=== PATIENT | male | born 1990 | race Caucasian/White ===

== ENCOUNTER 2017-04-25 01:39 | Emergency (ER) | payer OTHER, BC ==
[~2017-04-25 01:39] MED LIST: SULF-198 PO
[2017-04-25 01:43] VITALS: BP 152/105
[2017-04-25] MEDS ORDERED: CETI10CA8 PO (01:46)
--- NOTE | 2017-04-25 01:58 | ER Report ---
History and Physical Time Seen By MD: 01:53 Hx. of Stated Complaint: PT WAS SEARCHING POSSIBLE IV DRUG USER AND WAS POKED BY SOMETHING ON PERSON. 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 Patient has 2 puncture wounds noted on the distal end of his right long finger. Patient reports that the suspect was a IV drug abuser. He is concerned about exposure to hepatitis C and HIV. He was wearing nitrile gloves at the time. Patient reports he's had hepatitis B vaccine series. Allergies: Coded Allergies: No Known Drug Allergies (Unverified , 04/25/17) Home Meds Active Scripts Emtricitabine (EMTRIVA) 200 Mg Capsule, 200 MG PO DAILY for prevention of HIV infection, #21 CAPSULE Prov:BLAIR JOSHUA DO 04/25/17 Emtricitabine (EMTRIVA) 200 Mg Capsule, 200 MG PO DAILY for prevention of HIV infection, #21 CAPSULE Prov:BLAIR JOSHUA DO 04/25/17 Tenofovir Disoproxil Fumarate (VIREAD) 300 Mg Tablet, 300 MG PO DAILY for prevention of HIV infection, #21 Prov:BLAIR JOSHUA DO 04/25/17 Tenofovir Disoproxil Fumarate (Tenofovir Disoproxil Fumarate) 300 Mg Tablet, 1 EACH PO DAILY for prevention of HIV infection, #7 Prov:BLAIR JOSHUA DO 04/25/17 Raltegravir Potassium (ISENTRESS) 400 Mg Tablet, 400 MG PO DAILY for prevention of HIV infection, #21 Prov:BLAIR JOSHUA DO 04/25/17 Raltegravir Potassium (ISENTRESS) 400 Mg Tablet, 400 MG PO DAILY for prevention of HIV infection, #7 Prov:BLAIR JOSHUA DO 04/25/17 Sulfamethoxazole/Trimet 800-160 Mg Tab (BACTRIM DS TABLET) 1 Each Tablet, 1 TAB PO BID for 30 Days, #60 TAB 2 Refills Prov:SHARON SELLERS NPC 01/25/17 Reported Medications Cetirizine Hcl (ZYRTEC) 10 Mg Capsule, 10 MG PO QDAY, CAPSULE 04/25/17 Reviewed Nurses Notes: Yes Old Medical Records Reviewed: Yes Hx Substance Use Disorder: No Hx Alcohol Use: No Constitutional Vital Sign - Last 24 Hours 04/25/17 01:43 Temp 98.3 Pulse 65 Resp 16 B/P (MAP) 152/105 Pulse Ox 98 O2 Delivery Room Air Physical Exam General appearance: Alert no distress. Vital signs stable, afebrile Respiratory: Chest is non tender, lungs are clear to auscultation. Cardiac: Regular rate and rhythm Extremities: Examination of the right hand reveals a neurovascularly intact digits. On the very tip of the right long finger. There are 2 tiny puncture wound appearing morrissey just adjacent to the nail on the very tip of the finger. DIFFERENTIAL DIAGNOSIS: After history and physical exam differential diagnosis was considered for needle stick injury, possible exposure to HIV, hepatitis C Medical Decision Making Data Points Laboratory Hematology Test 04/25/17 01:47 HIV (1&2) Antibody Negative (NEGATIVE) Chemistry Test 04/25/17 01:47 HIV (1&2) Antibody Negative (NEGATIVE) ED Course/Re-evaluation ED Course Patient was admitted to an examination room. H&P was done. The differential diagnoses was considered. On clinical examination. Patient has potential needle stick morrissey on his right long finger. He is advised about postexposure prophylaxis. Nicotine his best interest to start prophylaxis to prevent transmission of HIV. He's advised to have the source patient checked for HIV and hepatitis B&C. prescriptions were written for 3 antiviral drugs advised for the current postexposure prophylaxis. Patient was written a 7 day supply. Hopefully he can discontinue it. He was given another prescription for an additional 3 weeks. Should he need it. Patient advised to follow-up with his age are for referral to workers comp provider for blood evaluation at 6 weeks and 6 months. Decision to Disposition Date: Apr 25, 2017 Decision to Disposition Time: 02:07 Depart Departure Latest Vital Signs Vital Signs Date Time Temp Pulse Resp B/P (MAP) Pulse Ox O2 Delivery O2 Flow Rate FiO2 04/25/17 01:43 98.3 65 16 152/105 98 Room Air Impression: Primary Impression: Needle stick injury of finger of right hand Additional Impression: Needlestick injury due to hypodermic needle Condition: Improved Disposition: HOME OR SELF-CARE New Scripts Emtricitabine (EMTRIVA) 200 Mg Capsule 200 MG PO DAILY for prevention of HIV infection, #21 CAPSULE Prov: BLAIR JOSHUA DO 04/25/17 Emtricitabine (EMTRIVA) 200 Mg Capsule 200 MG PO DAILY for prevention of HIV infection, #21 CAPSULE Prov: BLAIR JOSHUA DO 04/25/17 Tenofovir Disoproxil Fumarate (VIREAD) 300 Mg Tablet 300 MG PO DAILY for prevention of HIV infection, #21 Prov: BLAIR JOSHUA DO 04/25/17 Tenofovir Disoproxil Fumarate (Tenofovir Disoproxil Fumarate) 300 Mg Tablet 1 EACH PO DAILY for prevention of HIV infection, #7 Prov: BLAIR JOSHUA DO 04/25/17 Raltegravir Potassium (ISENTRESS) 400 Mg Tablet 400 MG PO DAILY for prevention of HIV infection, #21 Prov: BLAIR JOSHUA DO 04/25/17 Raltegravir Potassium (ISENTRESS) 400 Mg Tablet 400 MG PO DAILY for prevention of HIV infection, #7 Prov: BLAIR JOSHUA DO 04/25/17 Patient Instructions: Needle Stick Injuries (ED) Additional Instructions: Follow-up with your HR department for follow-up. A blood draw in 6 weeks and 6 months to check for hepatitis C and HIV conversion We will prescribe postexposure prophylaxis to prevent conversion to HIV positive. If you are exposed. It is a 3 drug treatment plan. Those will be prescribed Problem Qualifiers Primary Impression: Needle stick injury of finger of right hand Encounter type: initial encounter Qualified Codes: S61.239A - Puncture wound without foreign body of unspecified finger without damage to nail, initial encounter; W27.3XXA - Contact with needle (sewing), initial encounter BLAIR JOSHUA DO Apr 25, 2017 01:58
[2017-04-25] MEDS ORDERED: TENO300T PO (02:14)
[2017-04-25] MEDS ORDERED: TEN300PT PO (02:14)
[2017-04-25] MEDS ORDERED: RALT400T6 PO (02:14)
[2017-04-25] MEDS ORDERED: [UNRECOGNIZED DRUG - CODE] PO (02:14)
== END 2017-04-25 02:37 | disposition home or self-care (01) ==
LOC: ER 02:13
DX: S61.239A Puncture wound without foreign body of unspecified finger without damage to nail, initial encounter (principal); W46.1XXA Contact with contaminated hypodermic needle, initial encounter
CPT/HCPCS: 36415; 86703; 86803; 87340; 99282

== ENCOUNTER 2017-06-29 08:58 | Outpatient (RCR) | payer BC, OTHER ==
[2017-06-01 08:51] VITALS: BP 138/70
--- NOTE | 2017-06-01 16:37 | ONCOLOGY CONSULTATION ---
EVENT DATE: June 01, 2017 REFERRING PHYSICIAN Olga Kirby [facility] REASON FOR CONSULTATION Evaluation and management of iron overload. HISTORY OF PRESENT ILLNESS Patient is a 26-year-old male who is followed by his primary care provider, Olga Kirby, and patient was found to have elevated iron studies recently. He had a chem panel which was normal. His iron studies showed ferritin of 414, serum iron was 154, TIBC was 280 and iron saturation was 55%. Patient does not know family history because he was adopted and denies any heavy alcohol intake, and denies any history of hepatitis in the past. PAST MEDICAL HISTORY Insignificant. PAST SURGICAL HISTORY Insignificant. SOCIAL HISTORY Patient is single with no children. 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 He drinks about one to two drinks per week. Denies any abuse of alcohol or illicit drugs. FAMILY HISTORY He was adopted and he does not know about his family history. CURRENT MEDICATIONS 1. Bactrim for acne. 2. Fish oil. 3. Multivitamin without iron. 4. Retinoid cream. 5. Clindamycin cream for acne. ALLERGIES No known drug allergies. REVIEW OF SYSTEMS CONSTITUTIONAL: No appetite or weight change. No fever, chills or sweating. No recent infection. HEENT: Ears: No tinnitus or hearing problem. Nose: No epistaxis. He has runny nose sometimes. Throat: No sore throat or mouth ulcers. Eyes: No diplopia or visual changes. RESPIRATORY: No shortness of breath. No cough, expectoration or hemoptysis. CARDIOVASCULAR: No chest pain, orthopnea, or paroxysmal nocturnal dyspnea (PND) . No edema. No palpitations. GASTROINTESTINAL: No nausea or vomiting. No diarrhea or constipation. No change in bowel movements. No heartburn or swallowing difficulties. No abdominal pain. No jaundice. No hematemesis, melena or rectal bleeding. GENITOURINARY: No hematuria or dysuria. MUSCULOSKELETAL: No pain in the muscles, joints or bones. NEUROLOGICAL: No tingling or numbness in the hands or feet. No headaches or convulsions. HEMATOLOGIC/LYMPHATIC: No bleeding or easy bruising. No weakness or fatigue. No enlarged lymph nodes. SKIN: No skin rash or lumps. PSYCHIATRIC: No anxiety or depression. PHYSICAL EXAMINATION GENERAL: Looks stable. Well-developed, well-nourished, and in no acute distress. VITAL SIGNS: Blood pressure 138/70, pulse 65 per minute, respirations 16 per minute, temperature 97.3, pulse ox 98% on room air. HEENT: Head: Atraumatic. No sinus tenderness to palpation. Eyes: No icterus or conjunctivitis. Mouth and Throat: No oral thrush or mucositis. NECK: Supple. No cervical or supraclavicular lymphadenopathy. LUNGS: Clear to auscultation and percussion bilaterally. HEART: Regular rate and rhythm. No gallops, murmurs, clicks or rubs. ABDOMEN: Soft and lax. No tenderness. No hepatosplenomegaly. No masses. EXTREMITIES: No cyanosis, clubbing or edema. LYMPHATICS: No peripheral lymphadenopathy. NEUROLOGICAL: Conscious, alert and oriented times three. No focal motor or sensory deficits. PSYCHIATRIC: Mood and affect appear normal. SKIN: No skin rash, bruise or purpuric eruption. ASSESSMENT 1. Iron overload with serum iron 414 and iron saturation 55%. Could be due to hemochromatosis. Patient does not know his family history because he was adopted. I am planning to run the genetic testing for hemochromatosis and I will see the patient in a week for further evaluation. If the patient will prove to have hemochromatosis then we will start induction phlebotomy until we reach the target of ferritin less than 50 and/or iron saturation less than 60%. Once we reach the target then we will start after that maintenance phlebotomy. I spent a long time with the patient and his fiancee explaining the disease and the complications of that disease if not treated. Patient is aware that the disease is 100% preventable if we can keep his target iron studies within ferritin less than 50% and/or iron saturation less than 60%. PLAN 1. Genetic testing for hemochromatosis. 2. Patient to return in one week for further evaluation and management. 3. Patient is to contact us for any new concerns or complaints MTDD
[2017-06-12 08:10] VITALS: BP 126/72
[2017-06-12 08:26] LABS: PLATELET COUNT, AUTOMATED 166 K/uL (150-450)
[2017-06-12 09:30] VITALS: BP 127/82
[2017-06-26 08:27] VITALS: BP 120/57
[2017-06-26 08:38] LABS: PLATELET COUNT, AUTOMATED 196 K/uL (150-450)
[~2017-06-29 08:58] MED LIST changes: +CETI10CA8 PO; +MULT-1335 PO; +OMEG-11 PO; +RALT400T6 PO; +SULF1TAB24 PO; +TEN300PT PO; +TENO300T PO; +[UNRECOGNIZED DRUG - CODE] PO
[2017-06-29 09:06] VITALS: BP 125/77
[2017-06-29] MEDS ORDERED: ISOT40CA4 PO (09:09)
--- NOTE | 2017-06-29 16:16 | ONCOLOGY FOLLOW UP NOTE ---
EVENT DATE: June 29, 2017 DIAGNOSIS Iron overload. CHIEF COMPLAINT Patient is here today for followup of his iron overload. HEMATOLOGY HISTORY Patient is a 26-year-old male who is followed by his primary care provider, Olga Kirby, and patient was found to have elevated iron studies recently. He had a chem panel which was normal. His iron studies showed ferritin of 414, serum iron was 154, TIBC was 280 and iron saturation was 55%. Patient does not know family history because he was adopted and denies any heavy alcohol intake, and denies any history of hepatitis in the past. Genetic testing for hemochromatosis came back negative mutation in the HFE gene. HISTORY OF PRESENT ILLNESS Patient is here today for followup of his iron overload. He is doing fine currently and totally asymptomatic. He received two phlebotomy sessions so far. PAST MEDICAL HISTORY Insignificant. PAST SURGICAL HISTORY Insignificant. SOCIAL HISTORY Patient is single with no children. 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 He drinks about one to two drinks per week. Denies any abuse of alcohol or illicit drugs. FAMILY HISTORY He was adopted and he does not know about his family history. CURRENT MEDICATIONS 1. Bactrim for acne. 2. Fish oil. 3. Multivitamin without iron. 4. Retinoid cream. 5. Clindamycin cream for acne. ALLERGIES No known drug allergies. REVIEW OF SYSTEMS CONSTITUTIONAL: No appetite or weight change. No fever, chills or sweating. No recent infection. HEENT: Ears: No tinnitus or hearing problem. Nose: No epistaxis. He has runny nose sometimes. Throat: No sore throat or mouth ulcers. Eyes: No diplopia or visual changes. RESPIRATORY: No shortness of breath. No cough, expectoration or hemoptysis. CARDIOVASCULAR: No chest pain, orthopnea, or paroxysmal nocturnal dyspnea (PND) . No edema. No palpitations. GASTROINTESTINAL: No nausea or vomiting. No diarrhea or constipation. No change in bowel movements. No heartburn or swallowing difficulties. No abdominal pain. No jaundice. No hematemesis, melena or rectal bleeding. GENITOURINARY: No hematuria or dysuria. MUSCULOSKELETAL: No pain in the muscles, joints or bones. NEUROLOGICAL: No tingling or numbness in the hands or feet. No headaches or convulsions. HEMATOLOGIC/LYMPHATIC: No bleeding or easy bruising. No weakness or fatigue. No enlarged lymph nodes. SKIN: No skin rash or lumps. PSYCHIATRIC: No anxiety or depression. PHYSICAL EXAMINATION GENERAL: Looks stable. Well-developed, well-nourished, and in no acute distress. VITAL SIGNS: Blood pressure 125/77, pulse 94 per minute, respirations 16 per minute, temperature 98.6, pulse ox 93% on room air. HEENT: Head: Atraumatic. No sinus tenderness to palpation. Eyes: No icterus or conjunctivitis. Mouth and Throat: No oral thrush or mucositis. NECK: Supple. No cervical or supraclavicular lymphadenopathy. LUNGS: Clear to auscultation and percussion bilaterally. HEART: Regular rate and rhythm. No gallops, murmurs, clicks or rubs. ABDOMEN: Soft and lax. No tenderness. No hepatosplenomegaly. No masses. EXTREMITIES: No cyanosis, clubbing or edema. LYMPHATICS: No peripheral lymphadenopathy. NEUROLOGICAL: Conscious, alert and oriented times three. No focal motor or sensory deficits. PSYCHIATRIC: Mood and affect appear normal. SKIN: No skin rash, bruise or purpuric eruption. DIAGNOSTIC DATA CBC showed white count 5.8, hemoglobin 16.8, hematocrit 47.9, platelets 196, 000. Serum iron 81, TIBC 310, iron saturation 26.1 and ferritin 157, which was down from 263 which was down from 414. ASSESSMENT Iron overload with initial serum ferritin of 414 and iron saturation 55%. Genetic testing for hemochromatosis came back negative. After two phlebotomy sessions his ferritin currently is 157 and iron saturation 26.1. I believe his iron overload is not due to hemochromatosis. I am planning to stop phlebotomy at the moment. I will see him again in three months with CBC, chem panel and iron studies at that time. If the patient will develop iron overload during this three months, I am planning to check other mutations for hemochromatosis and I our target for phlebotomy will change accordingly. I explained that to the patient and he is agreeable with the plan of management. PLAN 1. Continue followup. 2. Patient to return in three months with CBC, chem panel and iron studies with ferritin. 3. Patient is to contact us for any new concerns or complaints. MICHELLE
== END 2017-07-17 10:19 | disposition home or self-care (01) ==
LOC: ONC 08:58
PROVIDERS: ATTEND Internal Medicine Hematology
DX: R79.0 Abnormal level of blood mineral (principal)
CPT/HCPCS: 81256; 82728; 83540; 83550; 85025; 99195; 99202; 99212